=== PATIENT | male | born 1965 ===

== ENCOUNTER 2025-04-27 12:19 | Emergency (ER) | payer OTHER, SELFPAY ==
--- NOTE | ~2025-04-27 | XR_ITS ---
EXAMINATION: XR LUMBOSACRAL SPINE CLINICAL INFORMATION: R low back pain COMPARISON: None available. TECHNIQUE: AP and lateral views FINDINGS: Multilevel marginal osteophyte formation and syndesmophyte formation and endplate sclerosis and decreased intervertebral disc height throughout the axial skeleton pronounced at L5-S1 and L4-5. No acute cortical disruption or malalignment. No lytic or blastic lesions. Vascular calcifications, aorta. Vascular clips in the right hemiabdomen. Abundant stool without intestinal distention, right hemicolon.. XR/XR lumbar spine 2-3V IMPRESSION: Multilevel thoracolumbar spondylosis without acute fracture or gross listhesis. Atherosclerosis disease, aorta. Electronically signed by: Frank Burks MD 04/27/2025 01:38 PM [facility]
--- NOTE | ~2025-04-27 | CT_ITS ---
EXAMINATION: CT ANGIOGRAPHY LEGS WITH RUNOFF CLINICAL INFORMATION: Right lower extremity swelling, left lower extremity cold with questionable pulse COMPARISON: None available. TECHNIQUE: Axial CT was performed from upper abdomen to below the femur after bolus IV contrast. 3D/3D MIP rendering was performed with image postprocessing under concurrent supervision with interpretation and reporting of CT as requested by the referring physician to facilitate diagnosis and treatment planning; not requiring image postprocessing on an independent workstation. Coronal and sagittal reformatted images were generated from the original axial data set. ALARA: The examination used one or more of the following radiation dose reduction techniques: Automated exposure control, iterative reconstruction, and/or adjustment of mA and/or KV. FINDINGS: Aorta: Multifocal atherosclerotic calcifications are evident without aneurysm. Celiac artery lumen diameter decreases to 1.5 mm within 1 cm of the origin. There is post stenotic dilation. The more distal vessel measures 7.1 mm distal consistent with 79% focal stenosis. Celiac artery has a hooked shape. SMA: There is mild atherosclerotic ossification at the origin of SMA without hemodynamically significant stenosis. Single renal arteries are patent bilaterally without hemodynamically significant stenosis. There is focal atherosclerotic calcification at the origin. NANCY: Patent without hemodynamically significant stenosis. Bilateral iliac arteries are patent without aneurysm or hemodynamically significant stenosis. RIGHT LOWER EXTREMITY: There is superficial soft tissue edema distal to the knee joint. Common femoral through popliteal artery is patent without vascular calcification, dissection, or occlusion. At the trifurcation, anterior tibial artery traverses to the anterior compartment. The proximal vessel is patent. It is not clearly opacified with contrast at the junction of the middle third and proximal third lower leg. Peroneal and posterior tibial artery are opacified with contrast to the level of the ankle joint. LEFT LOWER EXTREMITY: Common femoral artery to popliteal artery demonstrates minimal multifocal atherosclerotic calcification without hemodynamically significant stenosis, aneurysm, or dissection. In the lower leg distal to the trifurcation, there is a short segment of anterior tibial artery that is opacified with contrast and no flow beyond the junction of middle third and proximal third lower leg. Peroneal artery is visible with contrast to the distal lower leg. Vessel is no longer identified 5 cm cephalad to the ankle joint. Posterior tibial artery appears occluded at the origin and there is multifocal vascular calcifications. ABDOMEN AND PELVIS: Liver and gallbladder are grossly normal. Pancreas is unremarkable. There is a right adrenal gland nodule measuring 11 mm diameter. 10 Hounsfield units. Left adrenal gland is unremarkable. Spleen is unremarkable. There is an exophytic simple cyst in the mid to lower left kidney and urinary lower pole left kidney measuring 9 Hounsfield units consistent with simple renal cysts. This is stool present throughout the colon. There is a clip in the medial cecal region likely related to prior appendectomy. There is no ascites. Small umbilical hernia contains adipose tissue. Mild degenerative disc disease is present in the thoracal lumbar spine. 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 Right anterior tibial artery: The origin of the vessel is patent. There is nonopacification of most of the right anterior tibial artery concerning for occlusion. Left posterior tibial artery appears occluded at the origin. The origin of the left anterior tibial artery is opacified with contrast. No contrast is demonstrated in most of the vessel. Contrast opacification is noted in the left peroneal artery from its origin through a point 5 cm cephalad to the ankle joint. Indeterminate right adrenal gland nodule 11 millimeters in diameter. Recommend 1-year followup adrenal protocol CT. Also, if clinically indicated, consider concurrent laboratory evaluation for possible pheochromocytoma. Electronically signed by: Candelario Brennan MD 04/27/2025 05:11 PM [facility]
--- NOTE | ~2025-04-27 | US_ITS ---
EXAMINATION: US TRIPLEX LOWER EXTREMITY, RIGHT CLINICAL INFORMATION: Right lower extremity edema COMPARISON: None available. TECHNIQUE: Color-flow triplex imaging with spectral analysis and compression Doppler were performed on the right lower extremity. FINDINGS: Respiratory variation, normal compression and augmented flow are noted throughout the right lower extremity. The visualized common femoral vein, superficial femoral vein, profunda femoral vein, popliteal vein and midcalf peroneal and posterior tibial venous segments show no evidence of deep venous thrombosis. US/US venous duplex LE RT IMPRESSION: No evidence of deep venous thrombosis involving the right lower extremity. Electronically signed by: Candelario Brennan MD 04/27/2025 03:46 PM EST
[2025-04-27 12:32] VITALS: BP 162/78; BP 210/118; PULSE 65; PULSE 71; RESP 15; TEMP 36.5; O2SAT 96; O2SAT 97; BMI 39.4
[2025-04-27 13:17] LABS: MANUAL DIFF FLAG NO
[2025-04-27 13:20] LABS: Hematocrit 43.6 % (42.0-52.0); Hemoglobin 14.3 g/dl (14.0-18.0); Imm Gran Abs Auto 0.01 X10*3/uL (0.00-0.03); Imm Gran Pct Auto 0.1 % (0.0-0.4); Lymphocytes Absolute Auto 2.1 X10*3/uL (1.2-4.9); Mean Corpuscular HGB Conc 32.8 g/dl (31.0-36.0); Mean Corpuscular Hemoglobin 28.4 pg (27.0-33.0); Mean Corpuscular Volume 86.5 fL (80.0-98.0); NRBC Abs Auto 0.000 X10*3/uL (0.0-0.012); NRBC Pct Auto 0.0 /100WBC (0.0-0.2); Platelet Count 303 X10*3/uL (160-400); Red Blood Count 5.04 X10*6/uL (4.60-5.80); White Blood Count 7.7 X10*3/uL (4.8-10.8)
[2025-04-27 13:31] LABS: Anion Gap 11 (12-20); Blood Urea Nitrogen 17 mg/dL (9-16); Calcium 9.8 mg/dL (8.4-10.2); Carbon Dioxide 27 mmol/L (22-29); Chloride 110 mmol/L (96-108); Creatinine Clr Calc Pharmacy 149.5; Estimated Glomerular Filt Rate > 60; Potassium 3.8 mmol/L (3.3-5.1); Sodium 144 mmol/L (135-145)
[2025-04-27 13:36] LABS: NT Pro B Type Natriuretic Pept 211.1 pg/mL (<300)
--- NOTE | 2025-04-27 14:09 | ED_ITS ---
HPI - General Adult General Chief complaint: Back Pain/Injury Stated complaint: R LOWER BACK PAIN W/MOVEMENT,R FOOT SWELLING Time Seen by Provider: 04/27/25 12:48 Source: patient, family (mother) and EMS Mode of arrival: EMS Limitations: no limitations History of Present Illness ED Provider: TORRIE HAAS PA-C HPI narrative: 60 year old male with no known pmhx presents to the ED today for evaluation of right lower back pain x a while . Additionally, his mother at bedside states that she was helping the patient put his pants on this morning and noticed that his right lower leg/ankle appeared to be more swollen than the left. She is not sure how long the leg has been swollen. The patient reportedly has never noticed the swelling. Denies any pain to the RLE. Patient seems to be an overall poor historian. Him and his mother state that he has never been seen by a doctor. He has no known medical conditions. He does not take any meds on a daily basis. 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 He denies any fever, chills, numbness/tingling/weakness of the extremities. No injury or trauma. He tells me that he lifts heavy news papers all day long. He reports history of slipped discs years ago, however with further questioning, states he has never received a diagnosis of this, he only assumes. Denies chest pain, SOB, orthopnea. Denies hx IVDU. Denies etoh consumption. Related Data Previous Rx's ?Medication ?Instructions ?Recorded naproxen 500 mg tablet 500 mg PO BID PRN pain #14 t abs 04/27/25 Allergies Allergy/AdvReac Type Severity Reaction Status Date / Time No Known Allergies (No Known Allergy Verified 04/27/25 12:38 Allergies*) Review of Systems 2 Review of Systems: Yes all other systems are reviewed and are negative PMFSH Past Medical History Attestation statement: The following information was validated with the patient. Source: old records reviewed and nursing notes reviewed Social History Social History Smoked in Last 30 Days: No Use of substances other than those prescribed or required for medical reasons: No Advance Directives: No Advance Directives Information Provided: No Do you have a plan to hurt others: No Plan Physical Exam ED Vital Signs: Vital Signs - 24 hr 04/27/25 12:32 04/27/25 16:19 04/27/25 19:06 Temperature 97.7 F 97.6 F 97.9 F Pulse Rate 65 58 58 Respiratory Rate 15 Blood Pressure 162/78 H 151/77 H 148/75 H Pulse Oximetry 97 97 96 Oxygen Delivery Method Room Air Room Air Room Air 04/27/25 22:03 Temperature 97.9 F Pulse Rate 61 Respiratory Rate 16 Blood Pressure 132/72 Pulse Oximetry 96 Oxygen Delivery Method Room Air BMI result Body Mass Index 39.4 hypertensive General: Well appearing, in no acute distress. Skin: Warm, dry, intact. No rashes or lesions. Head: Normocephalic, atraumatic. EENT: Hearing is intact b/l. Conjunctiva clear. Sclera is anicteric. PERRLA. EOM intact. Moist mucous membranes.? Neck: Supple without LAD Cardiac: Chest wall symmetric. RRR Lungs: Normal respiratory effort without accessory muscle use. CTA bilaterally Abdomen: obese, soft, non-tender, non-distended. No rebound tenderness or guarding. Positive BS x4. no cvat. Back: no midline spinous tenderness, no step off. there is mild right lumbar paraspinal muscle tenderness to palpation. no mass. no overlying skin changes. Ext: +nonpitting edema noted to right lower extremity from foot to knee. no calf tenderness. FROM intact to right ankle and toes. dp pulse IDd w/ doppler only. unable to palpate pulses, likely d/t swelling. no overt swelling to LLE. LLE is cold, pink, no mottling, unable to palpable LLE dp or pt pusle. able to ID DP with doppler. Neuro: AOx3. Normal speech. Strength 5/5 intact throughout. No saddle anesthesia. Sensation intact to light touch. Ambulating with steady gait. Psych: Appropriate mood and affect. Responds appropriately to questions. Course Course Course Narrative: 1700 -- cbc without leukocytosis or left shift. no anemia, h&h stable. chemistry without acute electrolyte abnormality requiring intervention. no ian. mildly elevated ast/alt, no priors to compare to. total bili elevated, no obvious significance. venous dupex RLE negative for dvt. xr lumbar spine negative for fracture. incidental finding of atherosclerotic disease to aorta. sign out given to Rasheed XIAO pending CT results and disposition. 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 Patient does not have any abdominal pain. Left lower extremity negative for signs of arterial occlusion. Legs is not cold. Positive for pulses. Case was discussed with vascular surgeon Dr. Lott who was given history physical exam and copy of CAT scan results. Recommends patient can be discharged and follow up as outpatient. Patient walked around the ER with no problem. Not suspecting caudina equina, epidural abscess, kidney stones, pyelonephritits, AL, PE, or any other life threatening etiology. Time: 20:34 Medications Administered Discontinued Medications Generic Name Dose Route Start Last Admin Trade Name Freq PRN Reason Stop Dose Admin Sodium Chloride 1,000 mls @ 999 mls/hr 04/27/25 15:00 04/27/25 16:28 Ns IV 04/27/25 16:00 Infused .Q1H1M STANTON Infusion Iohexol 100 ml 04/27/25 15:57 04/27/25 15:57 Iohexol 350 Mg/Ml 100 Ml Infus..Btl IV 04/27/25 15:58 100 ml ONCE ONE Administration Lidocaine 1 patch 04/27/25 14:52 04/27/25 15:28 Lidocaine 4 % Patch Adh..Patch TRANSDERMA 04/27/25 14:53 1 patch ONCE ONE Administration Protocol Medical Decision Making Medical Decision Making MDM Narrative: 60 year old male with no known past medical history presents to the ED today for evaluation of right lower back pain x a while and RLE swelling x today. hypertensive, vitals are otherwise wnl. refer to exam portion for findings. Differential diagnosis includes msk sprain/strain, arthritis, disc herniation, sciatica, DVT, dependent edema, PVD, venous stasis, CHF Less likely UTI, renal colic, nephrolthiasis, arterial occlusion. Unlikely cauda equina, guillain barre, cord compression. Plan for labs, imaging, pain control, and re-evaluation. Differential Diagnosis Differential Diagnoses: The differential diagnosis associated with the presentation includes as above. Admission/Observation Consideration of admission/observation: Escalation of care including admission/observation considered Lab Data MDM Lab Attestation statement: I reviewed the patient's lab results. as above. 04/27/25 13:13 04/27/25 13:13 Labs: Lab Results 04/27/25 Range/Units 13:13 WBC 7.7 (4.8-10.8) X10*3/uL RBC 5.04 (4.60-5.80) X10*6/uL Hgb 14.3 (14.0-18.0) g/dl Hct 43.6 (42.0-52.0) % MCV 86.5 (80.0-98.0) fL MCH 28.4 (27.0-33.0) pg MCHC 32.8 (31.0-36.0) g/dl RDW 12.8 (11.0-16.0) % Plt Count 303 (160-400) X10*3/uL MPV 9.7 (9.4-12.4) fL Immature Gran % (Auto) 0.1 (0.0-0.4) % Neut % (Auto) 61.4 (45-73) % Lymph % (Auto) 27.8 (20-40) % Calloway % (Auto) 7.4 (2-11) % Eos % (Auto) 2.1 (0-4) % Baso % (Auto) 1.2 (0-2) % Lymph # (Auto) 2.1 (1.2-4.9) X10*3/uL Calloway # (Auto) 0.6 (0.1-1.2) X10*3/uL Eos # (Auto) 0.2 (0.0-0.4) X10*3/uL Baso # (Auto) 0.1 (0.0-0.2) X10*3/uL Abs Immat Gran (auto) 0.01 (0.00-0.03) X10*3/uL Absolute Neuts (auto) 4.7 (2.0-8.3) x10*3/uL Absolute Nucleated RBC 0.000 (0.0-0.012) X10*3/uL Nucleated RBC % (auto) 0.0 (0.0-0.2) /100WBC Sodium 144 (135-145) mmol/L Potassium 3.8 (3.3-5.1) mmol/L Chloride 110 H (96-108) mmol/L Carbon Dioxide 27 (22-29) mmol/L Anion Gap 11 L (12-20) BUN 17 H (9-16) mg/dL Creatinine 0.65 (0.5-1.4) mg/dL Estim Creat Clear Calc 149.5 Estimated GFR > 60 Random Glucose 90 (60-115) mg/dL Calcium 9.8 (8.4-10.2) mg/dL Total Bilirubin 1.1 H (0.0-1.0) mg/dL Direct Bilirubin 0.3 (0.0-0.5) mg/dL AST 83 H (5-37) U/L ALT 71 H (0-40) U/L Alkaline Phosphatase 61 (39-117) U/L NT-Pro-B Natriuret Pep 211.1 (<300) pg/mL Total Protein 7.4 (6.5-8.0) g/dL Albumin 4.4 (3.5-5.0) g/dL Independent Interpretation I performed an independent interpretation of an: Plain X-Ray, Ultrasound and CT Scan Interpretation: venous duplex rle without dvt xr lumbar spine without fracture Radiology Impression Discussion of test interpretation with radiology: I have reviewed the radiologist's reading. Radiologist Impression: Procedure(s): US venous duplex LE RT Accession Number(s): [id number] cc: Physician,None ; Torrie Haas~ Reason for Exam: le swelling EXAMINATION: US TRIPLEX LOWER EXTREMITY, RIGHT CLINICAL INFORMATION: Right lower extremity edema COMPARISON: None available. TECHNIQUE: Color-flow triplex imaging with spectral analysis and compression Doppler were performed on the right lower extremity. FINDINGS: Respiratory variation, normal compression and augmented flow are noted throughout the right lower extremity. The visualized common femoral vein, superficial femoral vein, profunda femoral vein, popliteal vein and midcalf peroneal and posterior tibial venous segments show no evidence of deep venous thrombosis. US/US venous duplex LE RT IMPRESSION: No evidence of deep venous thrombosis involving the right lower extremity. Electronically signed by: Candelario Brennan MD 04/27/2025 03:46 PM [facility] Procedure(s): XR lumbar spine 2-3V Accession Number(s): [id number] cc: Torrie Haas~ Reason for Exam: R low back pain EXAMINATION: XR LUMBOSACRAL SPINE CLINICAL INFORMATION: R low back pain COMPARISON: None available. TECHNIQUE: AP and lateral views FINDINGS: Multilevel marginal osteophyte formation and syndesmophyte formation and endplate sclerosis and decreased intervertebral disc height throughout the axial skeleton pronounced at L5-S1 and L4-5. No acute cortical disruption or malalignment. No lytic or blastic lesions. Vascular calcifications, aorta. Vascular clips in the right hemiabdomen. Abundant stool without intestinal distention, right hemicolon.. XR/XR lumbar spine 2-3V IMPRESSION: Multilevel thoracolumbar spondylosis without acute fracture or gross listhesis. Atherosclerosis disease, aorta. Electronically signed by: Frank Burks MD 04/27/2025 01:38 PM [facility] Procedure(s): CT angio abd aorta runoff Accession Number(s): [id number] cc: Physician,None ; Torrie Haas~ Report Number: [id number]: Total DLP = 607.00 mGy-cm Reason for Exam: swelling RLE, cold LLE, ?pulses EXAMINATION: CT ANGIOGRAPHY LEGS WITH RUNOFF CLINICAL INFORMATION: Right lower extremity swelling, left lower extremity cold with questionable pulse COMPARISON: None available. TECHNIQUE: Axial CT was performed from upper abdomen to below the femur after bolus IV contrast. 3D/3D MIP rendering was performed with image postprocessing under concurrent supervision with interpretation and reporting of CT as requested by the referring physician to facilitate diagnosis and treatment planning; not requiring image postprocessing on an independent workstation. Coronal and sagittal reformatted images were generated from the original axial data set. ALARA: The examination used one or more of the following radiation dose reduction techniques: Automated exposure control, iterative reconstruction, and/or adjustment of mA and/or KV. FINDINGS: Aorta: Multifocal atherosclerotic calcifications are evident without aneurysm. Celiac artery lumen diameter decreases to 1.5 mm within 1 cm of the origin. There is post stenotic dilation. The more distal vessel measures 7.1 mm distal consistent with 79% focal stenosis. Celiac artery has a hooked shape. SMA: There is mild atherosclerotic ossification at the origin of SMA without hemodynamically significant stenosis. Single renal arteries are patent bilaterally without hemodynamically significant stenosis. There is focal atherosclerotic calcification at the origin. NANCY: Patent without hemodynamically significant stenosis. Bilateral iliac arteries are patent without aneurysm or hemodynamically significant stenosis. RIGHT LOWER EXTREMITY: There is superficial soft tissue edema distal to the knee joint. Common femoral through popliteal artery is patent without vascular calcification, dissection, or occlusion. At the trifurcation, anterior tibial artery traverses to the anterior compartment. The proximal vessel is patent. It is not clearly opacified with contrast at the junction of the middle third and proximal third lower leg. Peroneal and posterior tibial artery are opacified with contrast to the level of the ankle joint. LEFT LOWER EXTREMITY: Common femoral artery to popliteal artery demonstrates minimal multifocal atherosclerotic calcification without hemodynamically significant stenosis, aneurysm, or dissection. In the lower leg distal to the trifurcation, there is a short segment of anterior tibial artery that is opacified with contrast and no flow beyond the junction of middle third and proximal third lower leg. Peroneal artery is visible with contrast to the distal lower leg. Vessel is no longer identified 5 cm cephalad to the ankle joint. Posterior tibial artery appears occluded at the origin and there is multifocal vascular calcifications. ABDOMEN AND PELVIS: Liver and gallbladder are grossly normal. Pancreas is unremarkable. There is a right adrenal gland nodule measuring 11 mm diameter. 10 Hounsfield units. Left adrenal gland is unremarkable. Spleen is unremarkable. There is an exophytic simple cyst in the mid to lower left kidney and urinary lower pole left kidney measuring 9 Hounsfield units consistent with simple renal cysts. This is stool present throughout the colon. There is a clip in the medial cecal region likely related to prior appendectomy. There is no ascites. Small umbilical hernia contains adipose tissue. Mild degenerative disc disease is present in the thoracal lumbar spine. 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 Right anterior tibial artery: The origin of the vessel is patent. There is nonopacification of most of the right anterior tibial artery concerning for occlusion. Left posterior tibial artery appears occluded at the origin. The origin of the left anterior tibial artery is opacified with contrast. No contrast is demonstrated in most of the vessel. Contrast opacification is noted in the left peroneal artery from its origin through a point 5 cm cephalad to the ankle joint. Indeterminate right adrenal gland nodule 11 millimeters in diameter. Recommend 1-year followup adrenal protocol CT. Also, if clinically indicated, consider concurrent laboratory evaluation for possible pheochromocytoma. Electronically signed by: Candelario Brennan MD 04/27/2025 05:11 PM [facility] Independent Historian Clinical information obtained from an independent historian. History obtained from or confirmed by: Parent (mom) and EMS Social Determinants Patient?s care significantly limited by Social Determinants of Health including: Other Social Determinant of Health Critical Care Time Critical Care Time Critical Care Time: No Discharge Plan Discharge Clinical Impression: Lumbar radiculopathy, Venous stasis, Peripheral vascular disease Patient Disposition: Home, Self-Care Instructions: Peripheral Vascular Disease (ED), Lumbar Radiculopathy (ED), Venous Insufficiency (DC) Additional Instructions: You will need follow-up with primary care provider and vascular surgeon. Return to the ED immediately for any abdominal pain, nausea, vomiting, fever, chills, chest pain, shortness of breath, paralysis of lower extremity, numbness/tingling of lower extremities, weakness, dizziness, urinary/bowel incontinence, genital numbness, or any other concerning symptoms. Ordering Physician: Torrie Haas Date of Service: 04/27/25 Procedure(s): CT angio abd aorta runoff Accession Number(s): [id number] cc: Physician,None ; Torrie Haas~ Report Number: [id number]: Total DLP = 607.00 mGy-cm Reason for Exam: swelling RLE, cold LLE, ?pulses EXAMINATION: CT ANGIOGRAPHY LEGS WITH RUNOFF CLINICAL INFORMATION: Right lower extremity swelling, left lower extremity cold with questionable pulse COMPARISON: None available. TECHNIQUE: Axial CT was performed from upper abdomen to below the femur after bolus IV contrast. 3D/3D MIP rendering was performed with image postprocessing under concurrent supervision with interpretation and reporting of CT as requested by the referring physician to facilitate diagnosis and treatment planning; not requiring image postprocessing on an independent workstation. Coronal and sagittal reformatted images were generated from the original axial data set. ALARA: The examination used one or more of the following radiation dose reduction techniques: Automated exposure control, iterative reconstruction, and/or adjustment of mA and/or KV. FINDINGS: Aorta: Multifocal atherosclerotic calcifications are evident without aneurysm. Celiac artery lumen diameter decreases to 1.5 mm within 1 cm of the origin. There is post stenotic dilation. The more distal vessel measures 7.1 mm distal consistent with 79% focal stenosis. Celiac artery has a hooked shape. SMA: There is mild atherosclerotic ossification at the origin of SMA without hemodynamically significant stenosis. Single renal arteries are patent bilaterally without hemodynamically significant stenosis. There is focal atherosclerotic calcification at the origin. NANCY: Patent without hemodynamically significant stenosis. Bilateral iliac arteries are patent without aneurysm or hemodynamically significant stenosis. RIGHT LOWER EXTREMITY: There is superficial soft tissue edema distal to the knee joint. Common femoral through popliteal artery is patent without vascular calcification, dissection, or occlusion. At the trifurcation, anterior tibial artery traverses to the anterior compartment. The proximal vessel is patent. It is not clearly opacified with contrast at the junction of the middle third and proximal third lower leg. Peroneal and posterior tibial artery are opacified with contrast to the level of the ankle joint. LEFT LOWER EXTREMITY: Common femoral artery to popliteal artery demonstrates minimal multifocal atherosclerotic calcification without hemodynamically significant stenosis, aneurysm, or dissection. In the lower leg distal to the trifurcation, there is a short segment of anterior tibial artery that is opacified with contrast and no flow beyond the junction of middle third and proximal third lower leg. Peroneal artery is visible with contrast to the distal lower leg. Vessel is no longer identified 5 cm cephalad to the ankle joint. Posterior tibial artery appears occluded at the origin and there is multifocal vascular calcifications. ABDOMEN AND PELVIS: Liver and gallbladder are grossly normal. Pancreas is unremarkable. There is a right adrenal gland nodule measuring 11 mm diameter. 10 Hounsfield units. Left adrenal gland is unremarkable. Spleen is unremarkable. There is an exophytic simple cyst in the mid to lower left kidney and urinary lower pole left kidney measuring 9 Hounsfield units consistent with simple renal cysts. This is stool present throughout the colon. There is a clip in the medial cecal region likely related to prior appendectomy. There is no ascites. Small umbilical hernia contains adipose tissue. Mild degenerative disc disease is present in the thoracal lumbar spine. 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 Right anterior tibial artery: The origin of the vessel is patent. There is nonopacification of most of the right anterior tibial artery concerning for occlusion. Left posterior tibial artery appears occluded at the origin. The origin of the left anterior tibial artery is opacified with contrast. No contrast is demonstrated in most of the vessel. Contrast opacification is noted in the left peroneal artery from its origin through a point 5 cm cephalad to the ankle joint. Indeterminate right adrenal gland nodule 11 millimeters in diameter. Recommend 1-year followup adrenal protocol CT. Also, if clinically indicated, consider concurrent laboratory evaluation for possible pheochromocytoma. Electronically signed by: Candelario Brennan MD 04/27/2025 05:11 PM EST RP [place] [address] Ultrasound Report Signed Patient: Ilir Dickey MR#: [id number] : 1965 Acct:[id number] Age/Sex: 60 / M ADM Date: 04/27/25 Loc: HO.ED Attending Dr: Ordering Physician: Torrie Haas Date of Service: 04/27/25 Procedure(s): US venous duplex LE RT Accession Number(s): [id number] cc: Physician,None ; Torrie Haas~ Reason for Exam: le swelling EXAMINATION: US TRIPLEX LOWER EXTREMITY, RIGHT CLINICAL INFORMATION: Right lower extremity edema COMPARISON: None available. TECHNIQUE: Color-flow triplex imaging with spectral analysis and compression Doppler were performed on the right lower extremity. FINDINGS: Respiratory variation, normal compression and augmented flow are noted throughout the right lower extremity. The visualized common femoral vein, superficial femoral vein, profunda femoral vein, popliteal vein and midcalf peroneal and posterior tibial venous segments show no evidence of deep venous thrombosis. US/US venous duplex LE RT IMPRESSION: No evidence of deep venous thrombosis involving the right lower extremity. Electronically signed by: Candelario Brennan MD 04/27/2025 03:46 PM EST RP [address] [address] XRay Report Signed Patient: Ilir Dickey MR#: [id number] : 1965 Acct:[id number] Age/Sex: 60 / M ADM Date: 04/27/25 Loc: HO.ED Attending Dr: Ordering Physician: Torrie Haas Date of Service: 04/27/25 Procedure(s): XR lumbar spine 2-3V Accession Number(s): [id number] cc: Torrie Haas~ Reason for Exam: R low back pain EXAMINATION: XR LUMBOSACRAL SPINE CLINICAL INFORMATION: R low back pain COMPARISON: None available. TECHNIQUE: AP and lateral views FINDINGS: Multilevel marginal osteophyte formation and syndesmophyte formation and endplate sclerosis and decreased intervertebral disc height throughout the axial skeleton pronounced at L5-S1 and L4-5. No acute cortical disruption or malalignment. No lytic or blastic lesions. Vascular calcifications, aorta. Vascular clips in the right hemiabdomen. Abundant stool without intestinal distention, right hemicolon.. XR/XR lumbar spine 2-3V IMPRESSION: Multilevel thoracolumbar spondylosis without acute fracture or gross listhesis. Atherosclerosis disease, aorta. Electronically signed by: Frank Burks MD 04/27/2025 01:38 PM EST RP Prescriptions: New naproxen 500 mg tablet 500 mg PO BID PRN (Reason: pain) Qty: 14 0RF Referrals: [facility] [place] [facility] [Provider Group, Internal Medicine] - 2 days Referral Note: Lumbar radiculopathy. 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
[2025-04-27 15:19] LABS: Alanine Aminotransferase 71 U/L (0-40); Albumin Level 4.4 g/dL (3.5-5.0); Alkaline Phosphatase 61 U/L (39-117); Aspartate Amino Transferase 83 U/L (5-37); Total Protein 7.4 g/dL (6.5-8.0)
[2025-04-27] MEDS: Lidocaine 4 % Patch ADH..PATCH 1 PATCH TRANSDERMA (15:28)
[2025-04-27] MEDS: iohexoL 350 MG/ML 100 ML INFUS..BTL IV (15:57)
[2025-04-27 16:19] VITALS: BP 151/77; PULSE 58; TEMP 36.4; O2SAT 97
[2025-04-27 19:06] VITALS: BP 148/75; PULSE 58; TEMP 36.6; O2SAT 96
[2025-04-27 22:03] VITALS: BP 132/72; PULSE 61; RESP 16; TEMP 36.6; O2SAT 96
--- NOTE | 2025-04-27 22:04 | PC.NURSE ---
RN offered pt PT consult due to concerns about ambulating by self @ home. Pt initially stated he doesn't feel comfortable walking, and is concerned about climbing the 2 flights of stairs in home. However upon ambulation trial pt ambulates independently. Pt states he feels comfortable to go home now and follow-up outpatient. Family @ bedside agreeable w/plan. Rasheed XIAO aware. Pt d/c'd.
== END 2025-04-27 22:21 | disposition home or self-care (01) ==
PROVIDERS: Physician Assistant Medical; Emergency Provider Emergency Medicine
DX: M54.16 Radiculopathy, lumbar region (principal); I73.9 Peripheral vascular disease, unspecified; R60.0 Localized edema
CPT/HCPCS: 36415; 72100; 75635; 80048; 80076; 83880; 85025; 93971; 96360; 99285; Q9967

== ENCOUNTER → 2025-04-27 13:00 | Outpatient (BNV) | payer OTHER, SELFPAY | PROVIDERS: Emergency Provider Emergency Medicine; Visit Provider Radiology Diagnostic Radiology | DX: I77.4 Celiac artery compression syndrome (principal); E27.9 Disorder of adrenal gland, unspecified; I70.92 Chronic total occlusion of artery of the extremities; R60.0 Localized edema; M47.815 Spondylosis without myelopathy or radiculopathy, thoracolumbar region; I70.0 Atherosclerosis of aorta | CPT/HCPCS: 72100; 75635; 93971 ==